=== PATIENT | female | born 1985 | race Caucasian/White ===

== ENCOUNTER → 2016-04-18 | Outpatient (CLI) | payer OTHER | LOC: EMI 16:45 | DX: M54.42 Lumbago with sciatica, left side (principal); M47.817 Spondylosis without myelopathy or radiculopathy, lumbosacral region; M51.27 Other intervertebral disc displacement, lumbosacral region; M99.73 Connective tissue and disc stenosis of intervertebral foramina of lumbar region; M51.87 Other intervertebral disc disorders, lumbosacral region | CPT/HCPCS: 72148 ==

== ENCOUNTER → 2016-05-04 | Outpatient (CLI) | payer OTHER | LOC: US 08:25 | DX: E04.1 Nontoxic single thyroid nodule (principal) | CPT/HCPCS: 10022; 76536 ==